=== PATIENT | male | born 1985 | race African-American/Black ===

== ENCOUNTER 2017-03-14 14:44 | Emergency (ER) | payer MEDICAID ==
[~2017-03-14] VITALS: Ht 170.2 cm; Wt 85.0 kg
[2017-03-14 14:55] VITALS: BP 118/59
== END 2017-03-14 19:20 | disposition left against medical advice (07) ==
LOC: ER 14:44
DX: R10.9 Unspecified abdominal pain (principal); Z53.21 Procedure and treatment not carried out due to patient leaving prior to being seen by health care provider

== ENCOUNTER 2017-05-10 00:54 | Emergency (ER) | payer MEDICAID ==
[~2017-05-10] VITALS: Ht 170.2 cm; Wt 90.0 kg
[2017-05-10] MEDS ORDERED: ONDANSETRON HCL 4MG/2ML VIAL IV STA (02:04)
[2017-05-10] MEDS ORDERED: SODIUM CHLORIDE 0.9% 1,000 ML IV ONE (02:04)
[2017-05-10] MEDS ORDERED: KETOROLAC 30MG/ML VIAL IV STA (02:04)
[2017-05-10 02:32] LABS: BASOPHILS % 0.4 % (0.0-2.0); HEMATOCRIT. 43.3 % (42.0-52.0); HEMOGLOBIN. 14.2 g/dL (14.0-18.0); LYMPHOCYTES % 20.8 % (20.0-50.0); MEAN CORPUSCULAR HEMOGLOBIN 27.7 pg (28.0-32.0); MEAN CORPUSCULAR VOLUME 84.6 fL (80.0-94.0); MEAN PLATELET VOLUME 7.5 fl (7.4-10.4); MONOCYTES % 4.6 % (2.0-8.0); NEUTROPHILS % 73.2 % (40.0-76.0); PLATELET 308 x1000/uL (130-400); RED BLOOD CELL COUNT 5.12 mill/uL (4.7-6.1); RED CELL DISTRIBUTION WIDTH 13.7 % (11.6-14.6)
[2017-05-10 02:42] LABS: CHLORIDE 103 mEq/L (98-107)
[2017-05-10 02:51] LABS: CARBON DIOXIDE 28 mEq/L (21-32); INR 1.1; PROTHROMBIN TIME 11.8 sec (9.4-11.6)
[2017-05-10] MEDS ORDERED: IOHEXOL-300 100 ML BOTTLE ONE (03:35)
[2017-05-10] MEDS ORDERED: DOXYCYCLINE HYCLATE 100MG CAPSULE PO ONE (05:30)
[2017-05-10] MEDS ORDERED: KETOROLAC 15MG/ML VIAL IV ONE (05:30)
[2017-05-10 05:45] VITALS: BP 101/51
[2017-05-10] MEDS ORDERED: CEFTRIAXONE SODIUM 250 MG/VIAL IV ONE (05:45)
[2017-05-10 05:56] LABS: CLARITY URINE CLEAR (CLEAR); COLOR URINE DARK YELLOW (YELLOW); GLUCOSE URINE NEGATIVE (NEGATIVE); KETONES URINE NEGATIVE (NEGATIVE); LEUKOCYTE ESTERASE URINE NEGATIVE (NEGATIVE); NITRITE URINE NEGATIVE (NEGATIVE); OCCULT BLOOD URINE NEGATIVE (NEGATIVE); PH URINE 6.5 (4.5-8.0); PROTEIN URINE NEGATIVE (NEGATIVE); SPECIFIC GRAVITY URINE 1.081 (1.005-1.030)
== END 2017-05-10 06:07 | disposition home or self-care (01) ==
LOC: ER 00:54
DX: K59.00 Constipation, unspecified (principal); N30.90 Cystitis, unspecified without hematuria; J45.909 Unspecified asthma, uncomplicated
CPT/HCPCS: 36415; 74177; 80053; 81003; 83690; 85025; 85610; 87086; 96361; 96374; 96375; 99285; J0696; J1885; J2405; J7030; Q9967; Z7610